=== PATIENT | female | born 1975 | race African-American/Black ===

== ENCOUNTER 2020-10-12 20:57 | Emergency (ER) | payer SELFPAY ==
--- NOTE | ~2020-10-12 | CT_ITS ---
EXAMINATION: CT abdomen pelvis w con INDICATION: Abdominal pain TECHNIQUE: Computed tomographic images of the abdomen and pelvis were obtained after the administrati on of 100 cc of Omnipaque 350 intravenous contrast. The dose-length product (DLP) was 794.97 mGy-cm. Automated exposure control and iterative reconstruction technique were employed. COMPARISON: None available FINDINGS: Minimal dependent atelectasis is present in the lung bases. The heart size is normal. Surgi rodolfo changes in the stomach may reflect gastric sleeve surgery. The liver, spleen, pancreas, gallbladd er, and adrenal glands are normal. There is a 3.1 cm cyst of the left kidney. The right kidney is unr emarkable. No pathologically enlarged abdominal or pelvic lymph nodes are identified. There is no jay e intraperitoneal gas or evidence of bowel obstruction. The appendix is not definitely identified. Th e endometrial cavity is distended by mildly hyperdense fluid. There is a small volume of free fluid d eep in the pelvis. There also appears to be some fluid anterior to the uterus. IMPRESSION: 1. Fluid distention of the endometrial cavity of unclear significance. Further evaluation with ultras ound is recommended. 2. Possible fluid collection anterior to the uterus which can be simultaneously evaluated at the time of pelvic ultrasound. Reviewed, dictated and finalized at location A. IMPRESSION: 1. Fluid distention of the endometrial cavity of unclear significance. Further evaluation with ultrasound is recommended. 2. Possible fluid collection anterior to the uterus which can be simultaneously evaluated at the time of pelvic ultrasound.
[2020-10-12 21:00] VITALS: BP 143/69; PULSE 83; RESP 20; TEMP 36.4; O2SAT 100
[2020-10-12 21:33] VITALS: BP 147/84; PULSE 82; RESP 26; TEMP 37.2; O2SAT 100
[2020-10-12] MEDS: SODIUM CHLORIDE 0.9% IV 1,000 ML 999 ML IV CONT (21:33)
[2020-10-12 21:48] VITALS: BP 147/84; PULSE 82; RESP 22; TEMP 37.2; O2SAT 100
--- NOTE | 2020-10-12 21:50 | PC.NURSE ---
Pt presents to ED with complaints or abdominal pain that onset yesterday. Pt states she is having a flare up of diverticulitis. Pain is rated 7/10 and denies tx travel pta. Pt states she took a laxative because she felt bloated and as a result her stomach started hurting. Pt complains of nausea and denies emesis, fever, chills, chest pain and sob at this time. Vitals are stable and pt in no obvious distress at this time. Family memeber present at bedside. Call button and personal items within reach. Pt advised to press call button for assistance. Pt aware of need for urine specimen and states she does not have to urinate at this time. Specimen cup provided.
[2020-10-12 21:51] LABS: Basophils Percent Auto 0.2 % (0.2-1.2); Eosinophils Absolute Auto 0.1 K/mm3 (0-0.3); Eosinophils Percent Auto 0.5 % (0-4.4); Hematocrit 36.8 % (37.0-47.0); Hemoglobin 11.6 g/dL (12.0-15.0); Immature Granulocyte Absolute 0.04 K/mm3 (0.00-0.031); Immature Granulocyte Percent A 0.4 % (0-0.5); Lymphocytes Absolute Auto 2.63 K/mm3 (0.9-3.2); Lymphocytes Percent Auto 23.9 % (18.3-44.2); Mean Corpuscular HGB Conc 31.5 g/dl (32-36); Mean Corpuscular Hemoglobin 26.4 pg (26-34); Mean Corpuscular Volume 83.6 fl (80-100); Mean Platelet Volume 9.8 fl (7.4-10.4); Monocytes Absolute Auto 0.7 K/mm3 (0.1-0.6); Monocytes Percent Auto 6.1 % (2.6-8.5); Neutrophils Absolute Auto 7.6 K/mm3 (1.3-6.7); Neutrophils Percent Auto 68.9 % (45.5-73.1); Platelet Count Result 230 k/mm3 (150-375); Red Cell Distribution Width 12.7 % (11.5-14.5)
[2020-10-12 22:06] LABS: Alanine Aminotransferase 12 U/L (4-35); Albumin Level 4.1 g/dL (3.5-5.1); Alkaline Phosphatase 67 U/L (38-126); Anion Gap 6 mmol/L (8-16); Aspartate Amino Transferase 22 U/L (14-36); Bilirubin,Total 0.6 mg/dL (0.2-1.3); Blood Urea Nitrogen 14 mg/dL (7-17); Calcium 9.3 mg/dL (8.4-10.2); Carbon Dioxide 27 mmol/L (22-30); Chloride 104 mmol/L (98-107); Estimated CRCL calculation 79 ml/min; Estimated Glomerular Filt Rate > 60; Glucose 132 mg/dL (65-105); Lipase 34 U/L (23-300); Potassium 3.8 mmol/L (3.4-5.0); Sodium 137 mmol/L (137-145)
--- NOTE | 2020-10-12 22:19 | PC.NURSE ---
Pt complaining of pain. EDNP notified and presented to bedside.
[2020-10-12] MEDS: ONDANSETRON INJ 4 MG/2 ML VIAL IV PUSH (22:38)
[2020-10-12] MEDS: MORPHINE SULFATE (*CRX) 4 MG/ML INJ IV PUSH (22:38)
--- NOTE | 2020-10-12 22:43 | ED.GENADULT ---
HPI - General Adult General Chief complaint: Abdominal Pain Stated complaint: abdominal pain Time Seen by Provider: 10/12/20 21:07 Source: patient Mode of arrival: ambulatory Limitations: no limitations History of Present Illness HPI narrative: Patient is a 45 year old female who presents complaining of generalized abdominal pain x 1 day. Patient reports nausea without vomiting or diarrhea. Patient reports constipation yesterday and took laxative with BM x 2. She reports increased abdominal pain today with nausea. She denies vomiting or diarrhea. She denies using any otc medications at home prior to arrival. She reports a history of diverticulitis and kidney stones. She reports history of gastric sleeve. Related Data Allergies Allergy/AdvReac Type Severity Reaction Status Date / Time hydrocodone [From [place]] AdvReac Vomiting Verified 10/12/20 21:04 Review of Systems Review of Systems: Narrative: CONSTITUTIONAL: Denies fever, chills, or sweats. EYES: Denies visual changes, redness, or discharge. ENT: Denies rhinorrhea, congestion, sore throat, or otalgia. CARDIOVASCULAR: Denies chest pain, palpitations, or edema. RESPIRATORY: Denies cough or dyspnea. GASTROINTESTINAL: Reports abdominal pain and nausea, denies vomiting or diarrhea. GENITOURINARY: Denies dysuria or hematuria. SKIN: Denies rash or itching. MUSCULOSKELETAL: Denies back pain, joint pain, or myalgia. NEUROLOGIC: Denies headache, numbness, dizziness, or weakness. PSYCHIATRIC: Denies anxiety or depression. [facility] Past Medical History Medical History Diverticulitis Surgical History Surgical History Gastric bypass status for obesity Family History Family History (Updated 10/13/20 @ 01:15 by SABINA Dennis) Other Heart disease Hypertension Social History Social History Smoking status: Never smoker Alcohol intake: current Alcohol use details: occasional Substance use: never Comments At the time of signature, I have reviewed and agree with nursing past medical, surgical, social, and family history unless otherwise noted. Please see nursing chart for further information. There is no relevant family history pertinent to the presenting complaint. Exam Narrative: Exam Narrative: GENERAL: Well-appearing, well-nourished, and in no acute distress. HEAD: Normocephalic, atraumatic. EYES: EOMI. No redness or drainage. Conjunctiva are normal. ENT: Mucous membranes pink and moist. CHEST: No respiratory distress. Clear to auscultation. HEART: Regular rate and rhythm. No murmur appreciated. Normal peripheral pulses. GI: Soft, no distention. Bowel sounds normal in all quadrants. Generalized tenderness with palpation MUSCULOSKELETAL: No bony tenderness. EXTREMITIES: Normal range of motion. No edema. SKIN: Warm, dry, no rash. NEURO: No focal deficits. Alert and oriented x3. Gait steady. PSYCH: Normal affect. No signs of depression or anxiety. Course Vital Signs Vital signs: Vital Signs Temperature 36.4 C 10/12/20 21:00 Pulse Rate 83 10/12/20 21:00 Respiratory Rate 20 10/12/20 21:00 Blood Pressure 143/69 H 10/12/20 21:00 Pulse Oximetry 100 10/12/20 21:00 Temperature 37.2 C 10/13/20 00:27 Pulse Rate 77 10/13/20 00:27 Respiratory Rate 23 H 10/13/20 00:27 Blood Pressure 142/76 H 10/13/20 00:27 Pulse Oximetry 99 10/13/20 00:27 Reviewed-patient is informed that they may have pre-hypertension or hypertension based on a blood pressure reading. I recommend the patient call the primary care provider listed on their discharge instructions or a physician of their choice this week to arrange follow-up for further evaluation of possible pre-hypertension or hypertension. Medical Decision Making MDM Narrative Medical decision making narrative: Discussed
--- NOTE | 2020-10-12 22:50 | PC.NURSE ---
IV fluids continue to infuse due to positional site. Pt ambulated in perdomo to restroom with steady gait; specimen collected and sent to lab. Pt resting on cart in its lowest position with call button and personal items within reach. Family member remains at bedside. Pt advised to press call button for assistance.
--- NOTE | 2020-10-12 23:06 | PC.NURSE ---
Pt to and from radiology and is now back in room resting on cart in its lowest position with call button and personal items within reach. Pt advised to press call button for assistance.
[2020-10-12 23:30] LABS: Add Urine Microscopic? YES; Appearance Urine Clear (Clear); Bacteria Urine Trace /hpf; Bilirubin Urine Negative (Negative); Blood Urine 2+ (Negative); Color Urine Yellow (Yellow); Glucose Urine UA Negative (Negative); Ketones Urine Negative (Negative); Leukocyte Esterase Ur Trace LEU/UL (Negative); Mucus Urine Moderate /lpf; Nitrate Urine Positive (Negative); Protein Urine Negative (Negative); RBC Urine 0-2 /hpf (0-2); Specific Grav Ur 1.021 (1.001-1.035); Squamous Epithelial Cell Urine Moderate /hpf (Few)
[2020-10-13 00:09] VITALS: BP 140/76; PULSE 77; RESP 22; O2SAT 100
[2020-10-13] MEDS: NITROFURANTOIN MONOHYD MACROCR 100 MG CAP PO (00:22)
[2020-10-13 00:24] VITALS: BP 142/76; PULSE 77; RESP 23; TEMP 37.2; O2SAT 99
[2020-10-13 00:27] VITALS: BP 142/76; PULSE 77; RESP 23; TEMP 37.2; O2SAT 99
== END 2020-10-13 00:30 | disposition home or self-care (01) ==
PROVIDERS: Emergency Provider Nurse Practitioner
DX: N30.00 Acute cystitis without hematuria (principal)
CPT/HCPCS: 36415; 74177; 80053; 80076; 81001; 82248; 83690; 85025; 87077; 87086; 87088; 87186; 96361; 96374; 96375; 99284; A9270; J2270; J2405; J7030; Q9967